=== PATIENT | male | born 1955 | race Caucasian/White ===

== ENCOUNTER → 2018-06-23 | Outpatient (CLI) | payer BC | END | disposition home or self-care (01) | LOC: LABWHC1 08:00 | PROVIDERS: ATTEND Family Medicine | DX: N40.0 Benign prostatic hyperplasia without lower urinary tract symptoms (principal); F41.1 Generalized anxiety disorder; R35.1 Nocturia | CPT/HCPCS: 36415; 84153 ==

== ENCOUNTER → 2018-09-29 | Outpatient (CLI) | payer BC ==
[2018-09-29 09:27] LABS: Basophils % (A) 0 %; Eosinophils # (A) 0.3 k/uL (0-0.7); Eosinophils % (A) 3 %; HCT 50.1 % (39.0-53.0); HGB 15.7 gm/dL (13.0-17.5); Lymphocytes # (A) 1.3 k/uL (1.0-4.8); Lymphocytes % (A) 14 %; MCHC 31.4 g/dL (31.0-37.0); MCV 98.9 fL (80.0-100.0); Mean Platelet Volume 6.9; Monocytes # (A) 0.6 k/uL (0-1.0); Monocytes % (A) 6 %; Neutrophils # (A) 7.3 k/uL (1.3-7.7); Neutrophils % (A) 76 %; Platelet Count 267 k/uL (150-450); RBC 5.07 m/uL (4.30-5.90); RDW 13.2 % (11.5-15.5); WBC 9.7 k/uL (3.8-10.6)
[2018-09-29 16:53] LABS: ALT 36 U/L (10-49); AST 40 U/L (14-35); Albumin/Globulin Ratio 1.88 (1.20-2.10); Alkaline Phosphatase 90 U/L (41-126); Calcium 9.4 mg/dL (8.7-10.3); Carbon Dioxide 28.2 mmol/L (21.6-31.8); Chloride 106 mmol/L (96-109); Cholesterol 170 mg/dL (0-200); Globulin 2.4 g/dL (2.1-3.7); Glucose 95 mg/dL (70-110); Potassium 4.6 mmol/L (3.5-5.5); Sodium 141 mmol/L (135-145); Total Bilirubin 0.8 mg/dL (0.2-1.2); Total Protein 6.9 g/dL (6.2-8.2); Triglycerides <50.0 mg/dL (0.0-149.0); VLDL Calculation 9.98 mg/dL (5.00-40.00)
== END | disposition home or self-care (01) ==
LOC: LABWHC1 08:30
PROVIDERS: ATTEND Family Medicine
DX: Z00.00 Encounter for general adult medical examination without abnormal findings (principal); I10 Essential (primary) hypertension; F41.1 Generalized anxiety disorder; G47.09 Other insomnia
CPT/HCPCS: 36415; 80053; 80061; 84153; 84439; 84443; 85025

== ENCOUNTER → 2019-01-28 | Outpatient (CLI) | payer BC ==
[2019-01-29 01:56] LABS: Anion Gap 10.2 mmol/L (4.00-12.00); Calcium 9.2 mg/dL (8.7-10.3); Carbon Dioxide 25.8 mmol/L (21.6-31.8); Potassium 3.8 mmol/L (3.5-5.5)
== END | disposition home or self-care (01) ==
LOC: LABWHC1 14:46
PROVIDERS: ATTEND Family Medicine
DX: I10 Essential (primary) hypertension (principal); F41.1 Generalized anxiety disorder
CPT/HCPCS: 36415; 80048

== ENCOUNTER → 2019-04-11 | Outpatient (CLI) | payer BC ==
--- NOTE | 2019-04-12 08:12 | CT ---
EXAMINATION TYPE: CT soft tissue neck w con DATE OF EXAM: 04/11/2019 COMPARISON: 03/06/[address] [facility] [address] cervical spine HISTORY: Neck mass CT DLP: 340.1 mGycm CONTRAST: Patient injected with 100 mL of Isovue 300. TECHNIQUE: Axial images at 3 mm thick sections. Reconstructed images in the coronal plane and sagitt al plane are reviewed. FINDINGS: Limited CT sections are obtained the lung apices. The lung apices appear clear. Mild emphy sematous changes present. There is a three-vessel arch. Vertebral arteries appear codominant. CT neck: The torus tubarius and fossa of Rosenmuller are normal. Mri Manager spaces are normal. Para nasal sinuses and mastoid air cells are clear. Parotid glands appear normal and symmetrical. Submandibular glands, are normal. Parapharyngeal spac es are normal. No suspicious adenopathy is evident. There is mild irregularity at the level of the epiglottis, vallecula, and piriform sinuses. Direct vi sualization is recommended. This is somewhat similar to the previous examination. Vocal cord level is closed at the time of this examination Thyroid as a few scattered small hypoechoic dense lesions. This could be further evaluated with ultra sound. Largest is on the right measuring approximately 0.7 cm. Degenerative changes are noted within the cervical spine. There is loss of disc height throughout the cervical spine. Prevertebral space appears normal Patient's reported neck mass is not identified on the current examination. Comparison images can be a cquired, addendum report can be issued. IMPRESSIONS: 1. Mild nodularity through the vallecula, epiglottic region, and piriform sinuses, present previously . Debris and mass are within the differential. Direct visualization is recommended. Neoplasm is not e xcluded.
== END | disposition home or self-care (01) ==
LOC: RADCTMAIN 16:27
PROVIDERS: ATTEND Otolaryngology
DX: J38.7 Other diseases of larynx (principal)
CPT/HCPCS: 70491; Q9967

== ENCOUNTER → 2019-08-26 | Outpatient (CLI) | payer BC ==
[2019-08-26 08:08] LABS: Basophils # (A) 0.1 k/uL (0-0.2); Basophils % (A) 1 %; Eosinophils # (A) 0.3 k/uL (0-0.7); Eosinophils % (A) 5 %; HCT 45.6 % (39.0-53.0); HGB 14.7 gm/dL (13.0-17.5); Lymphocytes # (A) 1.7 k/uL (1.0-4.8); Lymphocytes % (A) 28 %; MCH 33.2 pg (25.0-35.0); MCHC 32.4 g/dL (31.0-37.0); MCV 102.5 fL (80.0-100.0); Macrocytosis Slight; Mean Platelet Volume 7.9; Monocytes # (A) 0.5 k/uL (0-1.0); Monocytes % (A) 8 %; Neutrophils # (A) 3.3 k/uL (1.3-7.7); Neutrophils % (A) 55 %; Platelet Count 253 k/uL (150-450); RBC 4.45 m/uL (4.30-5.90)
[2019-08-26 11:30] LABS: ALT 32 U/L (10-49); AST 31 U/L (14-35); African American GFR (CKD) 82.9 (60.0-200.0); Albumin/Globulin Ratio 1.95 (1.60-3.17); Alkaline Phosphatase 84 U/L (41-126); BUN/Creat Ratio 23.64 Ratio (12.00-20.00); Calcium 9.3 mg/dL (8.7-10.3); Carbon Dioxide 24.3 mmol/L (21.6-31.8); Chloride 109 mmol/L (96-109); Chol/HDL Ratio 2.48; Cholesterol 159 mg/dL (0-200); Globulin 2.2 g/dL (1.6-3.3); Glucose 89 mg/dL (70-110); Non-African American GFR(CKD) 71.6 (60.0-200.0); Potassium 4.6 mmol/L (3.5-5.5); Sodium 141 mmol/L (135-145); Total Bilirubin 0.7 mg/dL (0.3-1.2); Total Protein 6.5 g/dL (6.2-8.2); Triglycerides <50.0 mg/dL (0.0-149.0)
--- NOTE | 2019-08-26 18:10 | XR ---
EXAMINATION TYPE: XR foot complete RT DATE OF EXAM: 08/26/2019 COMPARISON: NONE HISTORY: Pain TECHNIQUE: 3 views FINDINGS: There is plantar calcaneal spurring. Metatarsals are intact. I see no fracture nor dislocat ion. There are no erosions. IMPRESSION: Calcaneal spurring. No fracture seen.
== END | disposition home or self-care (01) ==
LOC: LABWHC1 07:00
PROVIDERS: ATTEND Family Medicine
DX: M77.31 Calcaneal spur, right foot (principal); Z00.00 Encounter for general adult medical examination without abnormal findings; F41.1 Generalized anxiety disorder; F33.1 Major depressive disorder, recurrent, moderate; I10 Essential (primary) hypertension
CPT/HCPCS: 36415; 80053; 80061; 84439; 84443; 85025

== ENCOUNTER → 2021-01-21 | Outpatient (CLI) | payer BC ==
--- NOTE | 2021-01-21 10:34 | ECHOF ---
Referral Reason:R55 Syncope MEASUREMENTS -------- HEIGHT: 182.9 cm WEIGHT: 81.6 kg BP: RVIDd: 3.3 cm (< 3.3) IVSd: 1.2 cm (0.6 - 1.1) LVIDd: 4.7 cm (3.9 - 5.3) LVPWd: 1.1 cm (0.6 - 1.1) IVSs: 1.7 cm LVIDs: 3.3 cm LVPWs: 2.1 cm LA Diam: 4.0 cm (2.7 - 3.8) LAESV Index (A-L): 24.83 ml/m Ao Diam: 3.9 cm (2.0 - 3.7) AV Cusp: 2.4 cm (1.5 - 2.6) MV EXCURSION: 19.176 mm (> 18.000) MV EF SLOPE: 116 mm/s (70 - 150) EPSS: 1.8 cm MV E Ehsan: 0.69 m/s MV DecT: 254 ms MV A Ehsan: 0.85 m/s MV E/A Ratio: 0.81 RAP: 5.00 mmHg RVSP: 26.84 mmHg FINDINGS -------- Sinus rhythm. This was a technically adequate study. The left ventricular size is normal. There is borderline concentric left ventricular hypertrophy. Overall left ventricular systolic function is low-normal with, an EF between 50 - 55 %. The right ventricle is mildly enlarged. Normal LA size by volume 22+/-6 ml/m2. The right atrium is normal in size. Interatrial and interventricular septum intact. There is mild aortic valve sclerosis. The mitral valve is normal. The tricuspid valve appears structurally normal. Trace/mild (physiologic) pulmonic regurgitation. The aortic root is dilated measuring 3.9cm. Normal inferior vena cava with normal inspiratory collapse consistent with estimated right atrial pre ssure of 5 mmHg. There is no pericardial effusion. CONCLUSIONS -------- 1. The left ventricular size is normal. 2. There is borderline concentric left ventricular hypertrophy. 3. Overall left ventricular systolic function is low-normal with, an EF between 50 - 55 %. 4. The right ventricle is mildly enlarged. 5. There is mild aortic valve sclerosis. 6. Trace/mild (physiologic) pulmonic regurgitation. 7. The aortic root is dilated measuring 3.9cm. 8. There is no pericardial effusion. CERTIFIED MASSAGE THERAPIST: Mary Saleem RDCS
== END ==
LOC: RADECHMAIN 08:47
PROVIDERS: ATTEND Family Medicine
DX: I35.8 Other nonrheumatic aortic valve disorders (principal)
CPT/HCPCS: 93005; 93306

== ENCOUNTER 2021-06-24 17:07 | Emergency (ER) | payer BC ==
--- NOTE | 2021-06-24 17:29 | ED ---
Extremity Problem HPI - General Chief complaint: Extremity Problem,Nontraumatic Stated complaint: Rt Leg Swelling Source: patient, RN notes reviewed, old records reviewed Mode of arrival: ambulatory Limitations: no limitations - History of Present Illness Initial comments: 66-year-old white male, well-appearing and in no acute distress, presents emergency room with right lower leg swelling. Patient states that he just noticed today. Denies any trauma or any injuries. He states that it does not hurt. He has not had any recent surgeries, denies any fevers. No history of cancer. He is a smoker. He states he is able to ambulate with no pain. MD Complaint: extremity swelling -: days(s) (1) Location: right, lower extremity History of Same: No Radiation: none Severity scale (1-10): 0 Improves with: nothing Worsens with: nothing Associated Symptoms: denies other symptoms - Related Data Home Medications Medication Instructions Recorded Confirmed FLUoxetine HCL [PROzac] 10 mg PO HS 06/24/21 06/24/21 Melatonin 10 mg PO HS 06/24/21 06/24/21 Vitamin B Complex 1 cap PO DAILY 06/24/21 06/24/21 buPROPion XL [Wellbutrin Xl] 150 mg PO BID 06/24/21 06/24/21 clonazePAM 0.5 mg PO DAILY PRN 06/24/21 06/24/21 lisinopriL 20 mg PO DAILY 06/24/21 06/24/21 methocarbamoL [Robaxin] 500 mg PO Q8H PRN 06/24/21 06/24/21 Previous Rx's Medication Instructions Recorded Tamsulosin [Flomax] 0.4 mg PO DAILY #10 cap 10/27/14 Allergies Allergy/AdvReac Type Severity Reaction Status Date / Time amoxicillin Allergy Nausea & Verified 06/24/21 19:56 Vomiting & Diarrhea Review of Systems ROS Statement: Those systems with pertinent positive or pertinent negative responses have been documented in the HPI. ROS Other: All systems not noted in ROS Statement are negative. Past Medical History Past Medical History: No Reported History Additional Past Medical History / Comment(s): kidney stones History of Any Multi-Drug Resistant Organisms: None Reported Additional Past Surgical History / Comment(s): kidney stone Past Psychological History: Anxiety, Panic Disorder Smoking Status: Current every day smoker Past Alcohol Use History: None Reported Past Drug Use History: None Reported General Exam Limitations: no limitations General appearance: alert, in no apparent distress Head exam: Present: atraumatic, normocephalic, normal inspection Eye exam: Present: normal appearance, PERRL, EOMI. Absent: scleral icterus, conjunctival injection, periorbital swelling Pupils: Present: normal accommodation ENT exam: Present: normal exam, normal oropharynx, mucous membranes moist Neck exam: Present: normal inspection, full ROM. Absent: tenderness, meningismus, lymphadenopathy, thyromegaly Respiratory exam: Present: normal lung sounds bilaterally. Absent: respiratory distress, wheezes, rales, rhonchi, stridor, chest wall tenderness, accessory muscle use, decreased breath sounds Cardiovascular Exam: Present: regular rate, normal rhythm, normal heart sounds. Absent: systolic murmur, diastolic murmur, rubs, gallop, clicks GI/Abdominal exam: Present: soft, normal bowel sounds. Absent: distended, tenderness, guarding, rebound, rigid Extremities exam: Present: full ROM, normal capillary refill, pedal edema (Right), joint swelling (Right ankle), calf tenderness (Right). Absent: tenderness Back exam: Present: normal inspection, full ROM. Absent: tenderness, CVA tenderness (R), CVA tenderness (L), muscle spasm, paraspinal tenderness, vertebral tenderness Neurological exam: Present: alert, oriented X3, CN II-XII intact Psychiatric exam: Present: normal affect, normal mood Skin exam: Present: warm, dry, intact, normal color. Absent: rash, cyanosis, diaphoretic, erythema, petechiae, pallor, mottled Course Vital Signs 06/24/21 06/24/21 17:12 21:25 Temperature 97.8 F 98.7 F Pulse Rate 79 81 Respiratory 16 19 Rate Blood Pressure 146/96 141/73 O2 Sat by Pulse 95 98 Oximetry Medical Decision Making - Medical Decision Making X-ray of the right tibia-fibula shows soft tissue swelling over the posterior medial aspect of the leg extending over the medial malleolus but no obvious ankle fracture dislocation. Ultrasound is negative for DVT. Hieu wrap applied patient was directed to return if any worsening symptoms or pain. He was given a referral to orthopedics. Instructed to rest, ice, wear Hieu wrap and elevate at home. Case discussed with Dr. Minor Disposition Clinical Impression: Leg pain Disposition: HOME SELF-CARE Condition: Good Instructions (If sedation given, give patient instructions): Leg Pain (ED) Additional Instructions: Rest, ice, wear Hieu wrap and elevate the leg while at home. Follow-up with the primary care doctor in 1 week. Return if worsening symptoms. Is patient prescribed a controlled substance at d/c from ED?: No Referrals: Moise Love MD [Primary Care Provider] - 1-2 days Yair Cottrell MD [STAFF PHYSICIAN] - 1-2 days Time of Disposition: 20:58
--- NOTE | 2021-06-24 19:58 | XR ---
EXAMINATION TYPE: XR tibia fibula RT DATE OF EXAM: 06/24/2021 COMPARISON: NONE HISTORY: 66 years Male. STUDY INDICATION GIVEN: TECHNIQUE: two views of the right tibia and fibula FINDINGS AND IMPRESSION: No acute fracture or dislocation. Mild soft tissue swelling over the posterior medial aspect of the middle leg. Soft tissue swelling ex tends over the medial malleolus. No obvious ankle fracture or dislocation. Calcaneal spur noted. Osseous density projecting over the tibial femoral joint spaces not well seen on the anterior view co uld represent a loose body or meniscal calcification. Questionable osteochondral defect in the medial joint space. None acute finding, could be followed up as outpatient.
--- NOTE | 2021-06-24 20:10 | US ---
EXAMINATION TYPE: US venous doppler duplex LE RT DATE OF EXAM: 06/24/2021 6:54 PM COMPARISON: NONE CLINICAL HISTORY: Pain. No hx of DVT. Patient does not take blood thinners. SIDE PERFORMED: Right TECHNIQUE: The lower extremity deep venous system is examined utilizing real time linear array sonog fredrick with graded compression, doppler sonography and color-flow sonography. VESSELS IMAGED: Common Femoral Vein Deep Femoral Vein Greater Saphenous Vein * Femoral Vein Popliteal Vein Small Saphenous Vein * Proximal Calf Veins (* superficial vessels) Right Leg: Normal compressibility and flow are demonstrated in the imaged deep veins of the right lo wer extremity. IMPRESSION: No evidence of deep vein thrombosis in the imaged veins of the right lower extremity at this time.
[2021-06-24 21:26] VITALS: BP 141/73; PULSE 81; RESP 19; TEMP 98.7
== END 2021-06-24 21:26 | disposition home or self-care (01) ==
LOC: EC 17:07
DX: M79.661 Pain in right lower leg (principal); F41.9 Anxiety disorder, unspecified; F17.200 Nicotine dependence, unspecified, uncomplicated; Z88.1 Allergy status to other antibiotic agents; Z87.442 Personal history of urinary calculi
CPT/HCPCS: 99284

== ENCOUNTER 2022-08-07 19:58 | Emergency (ER) | payer BC ==
--- NOTE | 2022-08-07 21:09 | XR ---
EXAMINATION TYPE: XR hand complete LT DATE OF EXAM: 08/07/2022 COMPARISON: NONE HISTORY: Dog bite TECHNIQUE: 3 views FINDINGS: The metacarpals are intact. There are some cystic changes at the base of the proximal phala nx of the index finger consistent with bone cyst. There is minimal expansion. No dislocation. There i s a cyst in the mid scaphoid bone as well. 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 No fracture seen.
[2022-08-07] MEDS ORDERED: DOXYCYCLINE 100 MG in SODIUM CHLORIDE 0.9% 100 ML IVPB ONE (22:13)
[2022-08-07] MEDS ORDERED: ACETAMINOPHEN TAB 500 MG TAB PO STA (22:17)
--- NOTE | 2022-08-07 22:19 | ED ---
Skin/Abscess/FB HPI - General Chief complaint: Skin/Abscess/Foreign Body Stated complaint: nausea, swollen hand Time Seen by Provider: 08/07/22 21:57 Source: patient, RN notes reviewed Mode of arrival: ambulatory Limitations: no limitations - History of Present Illness Initial comments: This is a [id number] 67-year-old male who presents to the emergency department complaining of swelling and heat to his left hand. Patient states she was bit by his own dog, redness, swelling area. Patient also developed a low-grade fever 2 days ago states he feels fatigued as well. Patient denying any shortness of breath. No cough. No sore throat. No earache. No problems with abdominal pain. No problems with urination or bowel movements. No other reason for fever. This was the patient's own pet was up-to-date on immunizations. She states that the dog was a John. No headache, no changes in vision or hearing, no sore throat or difficulty with speech, no neck pain, no chest pain or shortness of breath, no abdominal pain, no nausea or vomiting, no changes in urination or bowel movements, no numbness or tingling, no skin rashes or lesions. Past medical, surgical, social, and family history reviewed. - Related Data Home Medications Medication Instructions Recorded Confirmed FLUoxetine HCL [PROzac] 10 mg PO HS 06/24/21 06/24/21 Melatonin 10 mg PO HS 06/24/21 06/24/21 Vitamin B Complex 1 cap PO DAILY 06/24/21 06/24/21 buPROPion XL [Wellbutrin Xl] 150 mg PO BID 06/24/21 06/24/21 clonazePAM 0.5 mg PO DAILY PRN 06/24/21 06/24/21 lisinopriL [Prinivil] 20 mg PO DAILY 06/24/21 06/24/21 methocarbamoL [Robaxin] 500 mg PO Q8H PRN 06/24/21 06/24/21 Previous Rx's Medication Instructions Recorded Tamsulosin [Flomax] 0.4 mg PO DAILY #10 cap 10/27/14 Doxycycline [Vibramycin] 100 mg PO BID 1 Days #20 each 08/08/22 Allergies Allergy/AdvReac Type Severity Reaction Status Date / Time amoxicillin Allergy Nausea & Verified 08/07/22 20:31 Vomiting & Diarrhea Review of Systems ROS Statement: Those systems with pertinent positive or pertinent negative responses have been documented in the HPI. ROS Other: All systems not noted in ROS Statement are negative. Past Medical History Past Medical History: Hypertension Additional Past Medical History / Comment(s): depression kidney stones History of Any Multi-Drug Resistant Organisms: None Reported Additional Past Surgical History / Comment(s): kidney stone Past Psychological History: Anxiety, Panic Disorder Smoking Status: Current every day smoker Past Alcohol Use History: None Reported Past Drug Use History: None Reported General Exam - General Exam Comments Initial Comments: This is a generally well-appearing 67-year-old male in no acute distress. Patient does not appear to be ill or toxic. 100.8 fever noted. Limitations: no limitations General appearance: alert, in no apparent distress Head exam: Present: atraumatic, normocephalic, normal inspection Eye exam: Present: normal appearance, PERRL, EOMI. Absent: scleral icterus, conjunctival injection, periorbital swelling ENT exam: Present: normal exam, normal oropharynx, mucous membranes moist, normal external ear exam. Absent: mucous membranes dry Neck exam: Present: normal inspection. Absent: tenderness, meningismus, lymphadenopathy Respiratory exam: Present: normal lung sounds bilaterally. Absent: respiratory distress, wheezes, rales, rhonchi, stridor Cardiovascular Exam: Present: regular rate, normal rhythm, normal heart sounds. Absent: systolic murmur, diastolic murmur, rubs, gallop, clicks GI/Abdominal exam: Present: soft, normal bowel sounds. Absent: distended, tenderness, guarding, rebound, rigid Extremities exam: Present: full ROM, tenderness (Minimal tenderness to the soft tissue left hand), normal capillary refill, joint swelling, other (Erythema noted dorsum the left hand. Capillary refill is normal. Pulses are normal. No evidence of purulent discharge. No lymphangitis. No axillary adenopathy). Absent: normal inspection (Patient has small healing puncture wounds noted to the left hand.), pedal edema, calf tenderness Left Elbow exam: Present: normal inspection, full ROM. Absent: tenderness Forearm Wrist exam: Present: normal inspection, full ROM. Absent: tenderness Hand Wrist exam: Present: tenderness, swelling, abrasion, erythema Neuro motor exam: Present: wrist extension intact, thumb opposition intact, thumb IP flexion intact, thumb adduction intact, fingers 2-5 abduction intact Neurosensory exam: Present: radial nerve intact, ulnar nerve intact, median nerve intact Vascular: Present: normal capillary refill. Absent: vascular compromise, Pallo Back exam: Present: normal inspection Neurological exam: Present: alert, oriented X3, CN II-XII intact Psychiatric exam: Present: normal affect, normal mood Skin exam: Present: warm, dry, intact, normal color. Absent: rash Course Vital Signs 08/07/22 08/07/22 20:28 23:28 Temperature 100.8 F H 98.2 F Pulse Rate 92 Respiratory 20 Rate Blood Pressure 127/82 O2 Sat by Pulse 95 Oximetry Medical Decision Making - Medical Decision Making Gen. septic workup to include lactic acid, blood cultures. We'll x-ray the left hand. We'll treat with doxycycline as this does appear to be left hand cellulitis likely related to recent dog bite. Patient is ALLERGIC to penicillins. We'll add on a COVID-19 test as the patient does have a low-grade fever and fatigue. No other symptomology. Patient's lactic acid is negative. Mild elevation of white blood cell count. I suspect the left hand cellulitis is the culprit of the low-grade fever. However the patient looks well. Does not appear to be ill or toxic. I'm going to have the patient follow up with hand surgeon. Doxycycline 100 mg twice a day for dog bite cellulitis. I did tell the patient is very important to follow-up. Warm compresses discussed. Discussed risks of worsening infection. Patient concurs and wishes understanding. Patient was told to return to the ER for any signs or symptoms worsen. Told to return immediately if any other problems arise. All questions answered. Treatment plan discussed. Patient in agreement Every effort has been made to ensure accuracy of this dictation. However, due to the limitations of electronic medical records and dictation devices, errors in charting still occur. The case was discussed in detail with ED attending physician. Presentation, findings, treatment plan discussed in detail. [employer] Dr. Beth - Lab Data Result diagrams: 08/07/22 22:53 08/07/22 22:53 Lab Results 08/07/22 08/07/22 08/07/22 Range/Units 22:53 22:53 22:53 WBC 14.0 H (3.8-10.6) k/uL RBC 4.35 (4.30-5.90) m/uL Hgb 14.0 (13.0-17.5) gm/dL Hct 43.4 (39.0-53.0) % MCV 99.8 (80.0-100.0) fL MCH 32.3 (25.0-35.0) pg MCHC 32.3 (31.0-37.0) g/dL RDW 12.7 (11.5-15.5) % Plt Count 233 (150-450) k/uL MPV 8.3 Neutrophils % 72 % Lymphocytes % 18 % Monocytes % 7 % Eosinophils % 2 % Basophils % 0 % Neutrophils # 10.1 H (1.3-7.7) k/uL Lymphocytes # 2.5 (1.0-4.8) k/uL Monocytes # 1.0 (0-1.0) k/uL Eosinophils # 0.2 (0-0.7) k/uL Basophils # 0.1 (0-0.2) k/uL Sodium 136 L (137-145) mmol/L Potassium 4.6 (3.5-5.1) mmol/L Chloride 103 (98-107) mmol/L Carbon Dioxide 22 (22-30) mmol/L Anion Gap 11 mmol/L BUN 20 (9-20) mg/dL Creatinine 1.06 (0.66-1.25) mg/dL Est GFR (CKD-EPI)AfAm 85 (>60 ml/min/1.73 sqM) Est GFR (CKD-EPI)NonAf 74 (>60 ml/min/1.73 sqM) Glucose 101 H (74-99) mg/dL Plasma Lactic Acid Riki 0.9 (0.7-2.0) mmol/L Calcium 9.1 (8.4-10.2) mg/dL Total Bilirubin 1.2 (0.2-1.3) mg/dL AST 42 (17-59) U/L ALT 33 (4-49) U/L Alkaline Phosphatase 66 (38-126) U/L C-Reactive Protein 5.3 H (<1.0) mg/dL Total Protein 7.1 (6.3-8.2) g/dL Albumin 4.3 (3.5-5.0) g/dL Amylase 77 (30-110) U/L Lipase 63 (23-300) U/L Coronavirus (PCR) (Not Detectd) 08/07/22 Range/Units 22:53 WBC (3.8-10.6) k/uL RBC (4.30-5.90) m/uL Hgb (13.0-17.5) gm/dL Hct (39.0-53.0) % MCV (80.0-100.0) fL MCH (25.0-35.0) pg MCHC (31.0-37.0) g/dL RDW (11.5-15.5) % Plt Count (150-450) k/uL MPV Neutrophils % % Lymphocytes % % Monocytes % % Eosinophils % % Basophils % % Neutrophils # (1.3-7.7) k/uL Lymphocytes # (1.0-4.8) k/uL Monocytes # (0-1.0) k/uL Eosinophils # (0-0.7) k/uL Basophils # (0-0.2) k/uL Sodium (137-145) mmol/L Potassium (3.5-5.1) mmol/L Chloride (98-107) mmol/L Carbon Dioxide (22-30) mmol/L Anion Gap mmol/L BUN (9-20) mg/dL Creatinine (0.66-1.25) mg/dL Est GFR (CKD-EPI)AfAm (>60 ml/min/1.73 sqM) Est GFR (CKD-EPI)NonAf (>60 ml/min/1.73 sqM) Glucose (74-99) mg/dL Plasma Lactic Acid Riki (0.7-2.0) mmol/L Calcium (8.4-10.2) mg/dL Total Bilirubin (0.2-1.3) mg/dL AST (17-59) U/L ALT (4-49) U/L Alkaline Phosphatase (38-126) U/L C-Reactive Protein (<1.0) mg/dL Total Protein (6.3-8.2) g/dL Albumin (3.5-5.0) g/dL Amylase (30-110) U/L Lipase (23-300) U/L Coronavirus (PCR) Not Detected (Not Detectd) Disposition Clinical Impression: Cellulitis of left hand Disposition: HOME SELF-CARE Condition: Good Instructions (If sedation given, give patient instructions): Animal Bite (ED), Cellulitis (ED) Additional Instructions: Call tomorrow morning to schedule a follow-up appointment with the on-call hand surgeon. Take all antibiotics as directed. Elevate the hand whenever possible. Apply warm compresses for 10-15 minutes at a time 4 times daily. Follow-up with your regular physician as directed. Return to the ER immediately if any symptoms worsen, new symptoms arise, or any other problems develop. Prescriptions: Doxycycline [Vibramycin] 100 mg PO BID 1 Days #20 each Is patient prescribed a controlled substance at d/c from ED?: No Referrals: Moise Love MD [Primary Care Provider] - 1-2 days Deandre Das DO [Doctor of Osteopathic Medicine] - 1-2 days Time of Disposition: 00:21
[2022-08-07 23:18] LABS: Basophils # (A) 0.1 k/uL (0-0.2); Basophils % (A) 0 %; Eosinophils # (A) 0.2 k/uL (0-0.7); Eosinophils % (A) 2 %; HCT 43.4 % (39.0-53.0); Lymphocytes # (A) 2.5 k/uL (1.0-4.8); Lymphocytes % (A) 18 %; MCH 32.3 pg (25.0-35.0); MCHC 32.3 g/dL (31.0-37.0); MCV 99.8 fL (80.0-100.0); Mean Platelet Volume 8.3; Monocytes % (A) 7 %; Neutrophils # (A) 10.1 k/uL (1.3-7.7); Neutrophils % (A) 72 %; Platelet Count 233 k/uL (150-450); RBC 4.35 m/uL (4.30-5.90); RDW 12.7 % (11.5-15.5)
[2022-08-07 23:29] VITALS: TEMP 98.2
[2022-08-07 23:45] LABS: C Reactive Protein 5.3 mg/dL (<1.0); Calcium 9.1 mg/dL (8.4-10.2); Potassium 4.6 mmol/L (3.5-5.1); Total Bilirubin 1.2 mg/dL (0.2-1.3)
[2022-08-07 23:59] LABS: Albumin 4.3 g/dL (3.5-5.0); Total Protein 7.1 g/dL (6.3-8.2)
[2022-08-08 00:42] VITALS: BP 128/67; PULSE 67; RESP 18
[2022-08-08 01:21] LABS: Erythrocyte Sedimentation Rate 13 mm/hr (0-15)
== END 2022-08-08 00:41 | disposition home or self-care (01) ==
LOC: EC 19:58
DX: Z88.0 Allergy status to penicillin (principal); L03.114 Cellulitis of left upper limb; I10 Essential (primary) hypertension; F17.200 Nicotine dependence, unspecified, uncomplicated
CPT/HCPCS: 36415; 80053; 82150; 83605; 83690; 85025; 85652; 86140; 87040; 87635; 96365; 99284

== ENCOUNTER → 2024-04-19 | Outpatient (CLI) | payer BC ==
--- NOTE | 2024-04-21 17:02 | US ---
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 1.7 X 1.5 x 1.0 cm, mid , mixed cystic and solid, isoechoic nodule, which is wider than tall, wi th smooth margins, with echogenic foci. TR 3. Prior size: COMMUNICATIONS TECHNICIAN LEFT: # of nodules measured on left: multiple, measured largest 1. 1.8 X 1.3 x 1.1 cm, mid , cystic or almost completely cystic, anechoic nodule, which is wider th an tall, with smooth margins, without echogenic foci. TR 1 Prior size: COMMUNICATIONS TECHNICIAN ISTHMUS: # of nodules measured in the isthmus: 0 Bilateral neck scanned, no evidence of lymphadenopathy. IMPRESSION: Multiple bilateral thyroid nodules with a right thyroid lobe 1.7 cm TR 3 nodule. Follow-up ultrasound in one year is recommended.
== END | disposition home or self-care (01) ==
LOC: RADUSWWP 16:20
PROVIDERS: ATTEND Family Medicine
DX: E04.2 Nontoxic multinodular goiter (principal); E05.90 Thyrotoxicosis, unspecified without thyrotoxic crisis or storm
CPT/HCPCS: 76536